=== PATIENT | male | born 1990 | race Hispanic/Latino ===

== ENCOUNTER 2017-07-14 01:54 | Emergency (ER) | payer MEDICAID, OTHER ==
--- NOTE | 2017-07-14 03:05 | ED PDOC ---
Arrival/HPI - General Chief Complaint: GI Problem Time Seen by Provider: 07/14/17 02:55 Historian: Patient - Critical Care Narrative Critical Care (Text): 07/14/17 03:01 26 year old male, with no significant past medical history, presents to the Emergency department complaining of nausea and multiple episodes of vomiting prior to arrival. Patient states he feel dehydrated. Patient admits to drinking alcohol earlier this evening. Patient denies any fever, chills, chest pain, shortness of breath, abdominal pain, diarrhea or any other complaints. - History of Present Illness Time/Duration: Prior to Arrival Symptom Course: Unchanged Activities at Onset: Light Past Medical History - Provider Review Nursing Documentation Reviewed: Yes - Psychiatric Hx Substance Use: No Family/Social History - Physician Review Nursing Documentation Reviewed: Yes Family/Social History: No Known Family HX Smoking Status: no Hx Alcohol Use: Yes Hx Substance Use: No Allergies/Home Meds Allergies/Adverse Reactions: Allergies No Known Allergies Allergy (Unverified 07/14/17 02:59) Review of Systems - Physician Review All systems were reviewed & negative as marked: Yes - Review of Systems Constitutional: Normal. absent: Fevers Eyes: Normal ENT: Normal Respiratory: Normal. absent: SOB Cardiovascular: Normal. absent: Chest Pain Gastrointestinal: Nausea, Vomiting. absent: Abdominal Pain, Diarrhea Genitourinary Male: Normal Musculoskeletal: Normal Skin: Normal Neurological: Normal Endocrine: Normal Hemo/Lymphatic: Normal Psychiatric: Normal Physical Exam Vital Signs Reviewed: Yes Vital Signs Temp Pulse Resp BP Pulse Ox 07/14/17 02:57 97.9 F 84 18 122/84 99 Temperature: Afebrile Blood Pressure: Normal Pulse: Regular Respiratory Rate: Normal Appearance: Positive for: Well-Appearing, Non-Toxic, Comfortable Pain Distress: None Mental Status: Positive for: Alert and Oriented X 3 - Systems Exam Head: Present: Atraumatic, Normocephalic Pupils: Present: PERRL Extroacular Muscles: Present: EOMI Conjunctiva: Present: Normal Mouth: Present: Moist Mucous Membranes Neck: Present: Normal Range of Motion Respiratory/Chest: Present: Clear to Auscultation, Good Air Exchange. No: Respiratory Distress, Accessory Muscle Use Cardiovascular: Present: Regular Rate and Rhythm, Normal S1, S2. No: Murmurs Abdomen: Present: Normal Bowel Sounds. No: Tenderness, Distention, Peritoneal Signs Back: Present: Normal Inspection Upper Extremity: Present: Normal Inspection. No: Cyanosis, Edema Lower Extremity: Present: Normal Inspection. No: Edema Neurological: Present: GCS=15, CN II-XII Intact, Speech Normal Skin: Present: Warm, Dry, Normal Color. No: Rashes Psychiatric: Present: Alert, Oriented x 3, Normal Insight, Normal Concentration Medical Decision Making ED Course and Treatment: 07/14/17 03:05 Impression: 26 year old male presents to the Emergency department for nausea and vomiting. Plan: -- Labs -- Pepcid -- IV Fluids -- Zofran -- Reassess and disposition Progress Notes: 07/14/17 04:36 Upon reassessment, patient feels relief after treatment. Will discharge home with instructions. - Lab Interpretations Lab Results: 07/14/17 03:25 07/14/17 03:25 Lab Results 07/14/17 03:25: WBC 10.3, RBC 5.16, Hgb 14.5, Hct 44.1, MCV 85.5, MCH 28.1, MCHC 32.9, RDW 14.0, Plt Count 186, MPV 10.7 07/14/17 03:25: Sodium 142, Potassium 3.9, Chloride 103, Carbon Dioxide 25, Anion Gap 17, BUN 9, Creatinine 0.8, Est GFR ( Amer) > 60, Est GFR (Non- Af Amer) > 60, Random Glucose 100, Calcium 8.6, Total Bilirubin 0.4, AST 35, ALT 29, Alkaline Phosphatase 64, Total Protein 7.6, Albumin 4.6, Globulin 3.1, Albumin/Globulin Ratio 1.5, Lipase 93 - Medication Orders Current Medication Orders: Discontinued Medications Famotidine (Pepcid) 20 mg IVP STAT STA Stop: 07/14/17 03:00 Last Admin: 07/14/17 03:27 Dose: 20 mg IVP Administration Document 07/14/17 03:27 RD (Rec: 07/14/17 03:44 [place] [id number] Charges for Administration # of IVP Administrations 1 Sodium Chloride (Sodium Chloride 0.9%) 1,000 mls @ 999 mls/hr IV .Q1H1M STA Stop: 07/14/17 03:59 Last Admin: 07/14/17 03:25 Dose: 999 mls/hr eMAR Start Stop Document 07/14/17 03:25 RD (Rec: 07/14/17 03:43 [id number] Intravenous Solution Start Date 07/14/17 Start Time 03:25 End Date 07/14/17 End time 04:25 Total Infusion Time 60 Ondansetron HCl (Zofran Inj) 4 mg IVP ONCE ONE Stop: 07/14/17 03:00 Last Admin: 07/14/17 03:25 Dose: 4 mg IVP Administration Document 07/14/17 03:25 RD (Rec: 07/14/17 03:44 [place] [facility] [id number][place] Charges for Administration # of IVP Administrations 1 - Scribe Statement The provider has reviewed the documentation as recorded by the Scribe Bassam Sims. All medical record entries made by the Scribe were at my direction and personally dictated by me. I have reviewed the chart and agree that the record accurately reflects my personal performance of the history, physical exam, medical decision making, and the department course for this patient. I have also personally directed, reviewed, and agree with the discharge instructions and disposition. Disposition/Present on Arrival - Present on Arrival Any Indicators Present on Arrival: No History of DVT/PE: No History of Uncontrolled Diabetes: No Urinary Catheter: No History of Decub. Ulcer: No History Surgical Site Infection Following: None - Disposition Have Diagnosis and Disposition been Completed?: Yes Diagnosis: Gastritis Disposition: HOME/ ROUTINE Disposition Time: 04:31 Patient Plan: Discharge Condition: GOOD Discharge Instructions (ExitCare): Gastritis (ED) Additional Instructions: Drink liquid one at a time. Avoid alcohol consumption. Advance diet slowly as needed. Forms: [employer] (Yoruba)
[2017-07-14] MEDS: Sodium Chloride 0.9% 1,000 ML IV STA ×2 (03:25→04:56)
[2017-07-14 04:02] LABS: ALB/GLOB RATIO 1.5 (1.1-1.8); ALBUMIN 4.6 g/dL (3.0-4.8); ALT/SGPT 29 U/L (7-56); AST/SGOT 35 U/L (17-59); BLOOD UREA NITROGEN 9 mg/dL (7-21); CALCIUM 8.6 mg/dL (8.4-10.5); GFR AFRICAN-AMERICAN > 60; GFR NON-AFRICAN AMERICAN > 60; LIPASE 93 U/L (23-300)
[2017-07-14 04:10] LABS: HEMOGLOBIN 14.5 g/dL (14.0-18.0); MEAN CELL VOLUME 85.5 fl (80.0-105.0); MEAN CORPUSCULAR HEMOGLOBIN 28.1 pg (25.0-35.0); MEAN CORPUSCULAR HGB CONC 32.9 g/dl (31.0-37.0); MEAN PLATELET VOLUME 10.7 fl (7.0-11.0); RBC 5.16 10^6/uL (3.5-6.1); WHITE BLOOD COUNT 10.3 10^3/ul (4.5-11.0)
[2017-07-14 04:58] VITALS: BP 114/49; PULSE 91; RESP 118; TEMP 98; O2SAT 98
== END 2017-07-14 04:59 | disposition home or self-care (01) ==
LOC: ED 01:54
DX: K29.70 Gastritis, unspecified, without bleeding (principal)
CPT/HCPCS: 80053; 83690; 85027; 96361; 96374; 96375; 99283; J2405; J7040